=== PATIENT | male | born 1995 | race Caucasian/White ===

== ENCOUNTER 2022-08-22 15:03 | Emergency (ER) | payer SELFPAY ==
[2022-08-22 15:09] VITALS: BP 155/84; PULSE 81; RESP 16; TEMP 36.3; O2SAT 99; BMI 29.5
--- NOTE | 2022-08-22 15:23 | CRLHL7_ITS ---
For Patients: As a result of the Century Cures Act, medical imaging exams and procedure reports are released immediately into your electronic medical record. You may view this report before your referring provider. If you have questions, please contact your health care provider. Indication: Shoulder injury TECHNIQUE: Three views of the left shoulder. FINDINGS: No acute left shoulder fracture. AC joint space slightly is widened at 7 mm, correlate for AC separation. The glenoid fossa appears somewhat shallow. Otherwise normal shoulder. Dictated by Danny Quezada MD @ 08/22/2022 4:11:00 PM (Electronically Signed)
--- NOTE | 2022-08-22 15:24 | ED.GENADULT ---
HPI - General Adult General Chief complaint: Extremity Pain/Injury, Upper Stated complaint: L shoulder injury Time Seen by Provider: 08/22/22 15:07 History of Present Illness HPI narrative: Gene is a 27 year white male who was wrestling with a friend this weekend couple days ago and had pain in his left shoulder anteriorly. Did not pop or catch but he has got pain with forward flexion and actually is fairly good with abduction patient has no distal CMS problems in the upper extremity. He had no popping or cracking. He has been able to move the shoulder but it is very painful in the anterior part as mention Related Data Home Medications Medication Instructions Recorded Confirmed No Known Home Medications 08/22/22 08/22/22 Allergies Allergy/AdvReac Type Severity Reaction Status Date / Time No Known Drug Allergies Allergy Verified 08/22/22 15:11 Review of Systems Status of ROS: Reports: 6 or more systems reviewed and unremarkable except as noted in History and below PFSH PFSH Social History Smoking Status: Unknown if ever smoked Do you use any of these nicotine containing products: None Second hand tobacco smoke exposure: No How often do you have a drink containing alcohol: never AUDIT-C Alcohol total score: 0 Non-prescribed substance use: denies use service: No Exam Narrative: Exam Narrative: Objective: Patient has tenderness over his anterior shoulder not really over his bicipital tendon and he does not have a sees tenderness he has no obvious sulcus sign he has normal deltoid function distal CMS in left upper extremity is normal his good journeyman painter strength X-ray of the left shoulder is pending Const: Vital Signs, click to edit/add: Vital Signs - 24 hr 08/22/22 15:09 Temperature 97.3 F L Pulse Rate [Pulse Oximeter] 81 Respiratory Rate 16 Blood Pressure [Ri ght Upper Arm] 155/84 H Pulse Oximetry 99 Oxygen Delivery Me thod Room Air Course Vital Signs Vital signs: Initial Vital Signs Temperature 97.3 F L 08/22/22 15:09 Temperature Source Temporal Artery Scan 08/22/22 15:09 Pulse Rate 81 08/22/22 15:09 Respiratory Rate 16 08/22/22 15:09 Blood Pressure 155/84 H 08/22/22 15:09 Blood Pressure Mean 107 H 08/22/22 15:09 Blood Pressure Position Sitting 08/22/22 15:09 Pulse Oximetry 99 08/22/22 15:09 Oxygen Delivery Method Room Air 08/22/22 15:09 Vital Signs Temperature 97.3 F L 08/22/22 15:09 Pulse Rate 81 08/22/22 15:09 Respiratory Rate 16 08/22/22 15:09 Blood Pressure 155/84 H 08/22/22 15:09 Pulse Oximetry 99 08/22/22 15:09 Oxygen Delivery Method Room Air 08/22/22 15:09 Temperature 97.3 F L 08/22/22 15:09 Pulse Rate 81 08/22/22 15:09 Respiratory Rate 16 08/22/22 15:09 Blood Pressure 155/84 H 08/22/22 15:09 Pulse Oximetry 99 08/22/22 15:09 Oxygen Delivery Method Room Air 08/22/22 15:09 Medical Decision Making MDM Narrative Medical decision making narrative: Patient has a anterior shoulder strain, possibly a bicipital strain. Does not appear to have any muscle rinse or ruptures. He does not appear to have an AC separation. Will check an x-ray if this is unremarkable, I think a spot sling, icing aggressively generate circles in range of motion, ibuprofen on a regular basis for few days and light activity would be appropriate. I would recommend follow-up with your orthopedic office with 1 of the PAs for reassessment the next 2-3 days. Addendum: The patient's x-ray looks negative, arm sling, ice, ibuprofen, ortho follow-up in 2-3 days, recommend light use until then. Discharge Plan Discharge Clinical Impression: Acute pain of left shoulder Patient Disposition: Home, Self-Care Condition: Stable Additional Instructions: Arm sling, ice, Advil 800 mg 3 times a day x5 days, orthopedic followup in 2-3 days with 1 of the physician assistants. Light use of the shoulder and arm Activity Level: Light activity Discharge Diet: Regular Prescriptions: No Action No Known Home Medications [facility]
== END 2022-08-22 15:53 | disposition home or self-care (01) ==
PROVIDERS: Emergency Provider Family Medicine
DX: S46.912A Strain of unspecified muscle, fascia and tendon at shoulder and upper arm level, left arm, initial encounter (principal); Y93.72 Activity, wrestling
CPT/HCPCS: 73030; 99283